=== PATIENT | female | born 1960 | race Caucasian/White ===

== ENCOUNTER 2023-12-26 16:03 | Emergency (ER) | payer OTHER, BC | END 2023-12-26 18:50 | disposition home or self-care (01) | LOC: ERS 16:03 | DX: M54.2 Cervicalgia (principal); I10 Essential (primary) hypertension; V43.93XA Unspecified car occupant injured in collision with pick-up truck in traffic accident, initial encounter | CPT/HCPCS: 70450; 72125 ==

== ENCOUNTER 2024-08-14 13:15 | Outpatient (CLI) | payer BC | END 2024-08-14 13:16 | disposition home or self-care (01) | LOC: SCSRAD 13:15 | PROVIDERS: ATTEND Orthopaedic Surgery | DX: M54.50 Low back pain, unspecified (principal); M47.816 Spondylosis without myelopathy or radiculopathy, lumbar region; Z98.890 Other specified postprocedural states | CPT/HCPCS: 72100 ==